=== PATIENT | male | born 1980 | race Caucasian/White ===

== ENCOUNTER 2018-07-19 09:12 | Inpatient (IN) | payer OTHER ==
[~2018-07-19] VITALS: Ht 182.9 cm; Wt 154.7 kg
[2018-07-19 09:13] VITALS: BP 153/106
[2018-07-19 09:35] LABS: URINE BLOOD TRACE (Negative); URINE CLARITY CLEAR; URINE COLOR YELLOW; URINE GLUCOSE-RANDOM* NEGATIVE (Negative); URINE KETONES 3+ (Negative); URINE LEUKOCYTES-REFLEX NEGATIVE (Negative); URINE NITRITE-REFLEX NEGATIVE (Negative); URINE PROTEIN (DIPSTICK) 2+ (Negative); URINE SPECIFIC GRAVITY >= 1.030 (1.005-1.035)
[2018-07-19 09:38] LABS: URINE BILIRUBIN NEGATIVE (Negative)
[2018-07-19 09:39] LABS: ICTOTEST (BILI CONFIRMATORY) Negative (Negative); URINE REDUCING SUBSTANCE NEGATIVE
[2018-07-19 09:46] LABS: MUCUS 4-6 Moderate strn/LPF (None Seen); SQUAMOUS None Seen /LPF (0-3); URINE RBC 0-2 Rare /HPF (0-2); URINE WBC-REFLEX 0-5 Rare /HPF (0-5)
[2018-07-19 09:47] LABS: CRYSTALS None Seen /LPF (None Seen); FINE GRANULAR CASTS 0-3 Few /LPF (None Seen)
[2018-07-19 10:35] LABS: HEMATOCRIT 38.5 % (42.0-52.0); HEMOGLOBIN 12.7 gm/dL (14.0-18.0); MCH 29.1 pg (26.0-34.0); MCHC 33.1 g/dL (28.0-37.0); MCV 87.8 fL (80.0-100.0); RBC 4.38 mil/uL (4.50-6.00); RDW 12.6 % (10.5-14.5); WBC 11.7 thou/uL (4.0-11.0)
[2018-07-19 10:45] LABS: CALCIUM 9.2 mg/dL (8.5-10.1); POTASSIUM 3.3 mmol/L (3.5-5.1)
[2018-07-19 10:50] LABS: TOTAL BILIRUBIN 0.7 mg/dL (<0.1-1.0); TOTAL PROTEIN 7.5 g/dL (6.4-8.2)
[2018-07-19 16:07] VITALS: BP 125/83
--- NOTE | 2018-07-19 16:24 | NUR ---
[address] PER DR. REESE VIA TELEPHONE ORDER, READ BACK, CONFIRMED AT THIS TIME. MAR UPDATED.
[2018-07-19 16:33] VITALS: BP 108/62
[2018-07-19 16:40] VITALS: BP 146/97
--- NOTE | 2018-07-19 18:40 | NUR ---
Patient arrived from ER this evening. Alert and oriented x4. Afebrile on arrival to floor. Complaints of increase in pain to RLQ, rating a 20/10. Per ER report, patient also had increase in nausea and vomited before coming up to the floor. Called Dr. Heart to update of change in pain and nausea. Also febrile in ER with temp of 103. To draw labs in the morning and monitor patient overnight. Pain management changed to Dilaudid 0.5 mg q 2 hours. Patient given first dose and relates a decrease in pain; also feels nausea has settled as well. Patient has IR consult to place possible drain for ruptured appendix. Spoke with IR staff, who requests Dr. Tabares call post tronic machine operator physician, Dr. Miller. Paged Dr. Tabares. Updated on patient condition, orders from Dr. Heart and to call on-call IR physician. Provided with number. Dr. Miller did call this RN and to keep patient NPO, hold Lovenox overnight and to draw INR in morning. May place possible drain tomorrow morning. Orders placed in computer. Admission history, assessment and education completed. IVF infusing per orders. Bilateral SCDs in place. Patient encouraged to call for assistance before ambulating, due to pain medications. Verbalizes understanding. Will continue to monitor.
[2018-07-19 19:49] VITALS: BP 145/94
[2018-07-19 23:50] VITALS: BP 143/92
[2018-07-20] VITALS (15 sets, daily range): BP systolic 112–153; BP diastolic 52–102
--- NOTE | 2018-07-20 04:05 | NUR ---
Medicated for pain with some relief. He stated he slept fair during the night. Mom at bedside. No nausea or vomiting. Afebrile. Voided per urinal in bathroom. Will continue to monitor.
[2018-07-20 05:24] LABS: HEMATOCRIT 39.1 % (42.0-52.0); HEMOGLOBIN 13.1 gm/dL (14.0-18.0); MCH 29.3 pg (26.0-34.0); MCHC 33.4 g/dL (28.0-37.0); MCV 87.7 fL (80.0-100.0); RBC 4.46 mil/uL (4.50-6.00); RDW 12.8 % (10.5-14.5); WBC 10.6 thou/uL (4.0-11.0)
[2018-07-20 05:40] LABS: CREATININE 1.2 mg/dL (0.7-1.3); POTASSIUM 3.7 mmol/L (3.5-5.1)
[2018-07-20 05:52] LABS: INR 1.1; PROTIME 11.8 Seconds (9.3-11.4)
--- NOTE | 2018-07-20 18:13 | NUR ---
ASSUMED PATIENT CARE AT 0700/ A/O X4. IR INSERTED TWO ARSH TO RLQ. PATIENT FREQUENTLY NEEDS PAIN MEDS AND NAUSEA, UP STB. SLOWLY TOWARDS POC GOALS.
[2018-07-21 04:00] VITALS: BP 132/91
--- NOTE | 2018-07-21 06:46 | NUR ---
O2 sat in RA in the mid 80's at beginning of shift. O2 at 3L/NC and has maintained O2 sat in the mid 90's. No respiratory distress. SAP DATA ANALYST and RT notified. Hydrocodone given for pain at HS then hydromorphone given this am since he threw up when he woke up. Pain is well controlled and pt. stated tolearble. Max temp. this shift 99.8 then afebrile the rest of the night. Zofran given with good relief. Ambulated to bathroom to use urinal and voided dark yellow urine. Drain #1 had 30 ml of purulent dge. and none on drain #2. Pt. stated he slept better last night. Will continue to monitor.
[2018-07-21 07:37] VITALS: BP 130/84
[2018-07-21 15:39] VITALS: BP 128/90
--- NOTE | 2018-07-21 18:10 | NUR ---
Assumed care of Pt at 0700. PT alert and oreinted x4, pain well controlled with current med regimen. ambulating in hallway w/ sba - reports lightheadedness and feeling nauseated during ambulation . absess drain patent - see documentation for output. pt calls appropriately. tolerating clear liquids w/o difficulty. many visitors at bedside throughout the day. vitals stable. pt progressing toward poc goals.
[2018-07-21 20:00] VITALS: BP 134/87
[2018-07-22 03:20] VITALS: BP 115/82
--- NOTE | 2018-07-22 04:03 | NUR ---
PATIENT IS ALERT AND ORIENTED. PATIENT IS SBA. PATIENT IS ON 2L NC(NOT BASE LINE). PATIENTS PAIN IS CONTROLLED WITH PAIN MEDICATION. PATIENT DID NOT FEEL UP TO AMBULATING THIS SHIFT. PATIENT IS CONTIENT. VOIDS PER URINAL. DRIANS FLUSHED PER ORDER. PATIENT LBM WAS THE 27TH. PATIENT IS RESTING COFMORTABLY IN BED. WCM. PATIENT IS TOLERATING CLEAR LIQUIDS WELL.
[2018-07-22 07:35] VITALS: BP 132/86
--- NOTE | 2018-07-22 16:01 | NUR ---
Assumed care of Pt at 0700. Pt AOX4 in no acute distress. abscess drains in place w/ clear brown output. ambulating multiple times in hallway throughout day w/ stand by assist. advancing diet but pt reports small appetite. eating mostly jello. picc line ordered for outpatient abx use per ID rec. vitals stable. patient well controlled with current med regimen. last bm 07/21. afebrile. reporting no new symptoms. mom at bedside throughout day. voicing no concerns at this time. good progress toward poc goals.
--- NOTE | 2018-07-22 16:12 | NUR ---
INITIAL ASSESSMENT: Received consult to arrange home IV abx: Zosyn 4.5 gm IV q 8 hrs for one week. Pt will have PICC line placed. LYNN reviewed chart and spoke with nursing and attending physician. Pt was admitted from home with acute appendicitis. Pt had two drains placed and will need IV abx. LYNN met with pt and family at bedside. Introduced role of SW. Pt is alert/orientated x 4. Pt reports he lives at home with his . Prior to admission, pt was independent with ADLs. No use of DME. Pt is employed. Pt does not have a PCP. SW discussed need for home IV abx. Pt is aware and agreeable with discharge plan. LYNN discussed options for HH and Home Infusion companies. No preference voiced. LYNN faxed referral to [facility]. LYNN notified [facility] clinical account liaison, who states they do not accept pt's insurance. LYNN faxed referral to [facility] and notified liaisonDeysi. Awaiting call back from Deysi at this time. LYNN notified intake at [facility]. Awaiting input from [facility] if they accept pt's insurance. Pt to have PICC line placed this afternoon. Anticipated discharge home will be on Thursday, 07/24. LYNN is following to assist as needed with discharge planning.
[2018-07-22 16:23] VITALS: BP 122/84
--- NOTE | 2018-07-22 16:45 | NUR ---
VASCULAR ACCESS CONSULTED FOR PICC PLACEMENT, PT'S LABS,MEDS,HISTORY,ORDER AND CONSENT VERIFIED. DISCUSSED BENEFITS AND RISK WITH PT,VERBALIZED UNDERSTANDING. PT WAS PREPPED AND DRAPED FOR MAX BARRIER PRECAUTIONS. ANDREW BRACHIAL WAS WIDELY PATENT WITH USG,1% LIDOCAINE GIVEN SQ. 4FR SL POWER PICC TRIMMED TO 48CM INSERTED TO 3CM EXTERNAL. PICC SECURED , STAT CXR OBTAINED
--- NOTE | 2018-07-22 16:56 | NUR ---
CXR CONFIRMED PLACEMENT, PICC RELEASED FOR IMMEDIATE USE PER PROTOCOL TO EDGAR DODGE
[2018-07-22 19:15] VITALS: BP 136/88
[2018-07-23 04:50] VITALS: BP 119/81
[2018-07-23 05:51] LABS: HEMATOCRIT 34.4 % (42.0-52.0); HEMOGLOBIN 11.2 gm/dL (14.0-18.0); MCH 29.2 pg (26.0-34.0); MCHC 32.7 g/dL (28.0-37.0); MCV 89.4 fL (80.0-100.0); RBC 3.85 mil/uL (4.50-6.00); WBC 8.2 thou/uL (4.0-11.0)
[2018-07-23 06:04] LABS: CALCIUM 8.5 mg/dL (8.5-10.1); CREATININE 0.9 mg/dL (0.7-1.3); POTASSIUM 3.3 mmol/L (3.5-5.1)
--- NOTE | 2018-07-23 07:51 | NUR ---
PATIENT IS ALERT AND ORIENTED. PATIENT IS SBA. PATIENTS PAIN IS CONTROLLED WITH MEDICATION. NO FEVER. DRAIN #1 WONT FLUSH. PATIENTS PICC LINE WAS PULLED BY PATIENT CHEST XRAY WAS DONE TO DETERMINE PLACEMENT. PATIENT IS ON 2LNC. PATIENT LBM WAS THE 27TH. PATIENT IS RESTING COMFORTABLEY.
[2018-07-23 08:00] VITALS: BP 117/85
--- NOTE | 2018-07-23 10:39 | HC ---
[facility] [place] [address] CONSULTATION Name: SILVIANO SMITH Room #: 355-P [facility] IN .R.#: [id number] Admission: 07/19/18 ������������������ Attend Phys: Ariel Tabares MD Discharge: ������������������ Date of : 82 Report #: [id number] THIS REPORT FOR: //name// CC: PATRICIA physician/PCP Ariel Tabares DATE OF SERVICE: 07/22/2018 INFECTIOUS DISEASE CONSULTATION: REASON FOR CONSULTATION: I was asked to evaluate concerning intraabdominal abscess. HISTORY OF PRESENT ILLNESS: The patient is a 38-year-old who presented with 3-day history of increased right lower abdominal pain associated with low grade fever. Evaluation through the Emergency Room noted a phlegmonous change in the right lower quadrant and absence of a visualized appendix. Subsequently, formed an abscess x 2, which were percutaneously drained on 07/20/2018. Gram stain showed mixed artemio. Cultures are pending. The patient had temperature up to 102.9 degrees on that date and subsequently has been afebrile, although he continues to have some sweats. He has been on 2 liters of oxygen per nasal cannula. His pain is under reasonable control. He has had a moderate amount of feculent, purulent drainage from his drainage tubes. No prior history of GI disease. He has otherwise been healthy. He is obese. He is a smoker of cigarettes. He has a moderate amount of alcohol intake. REVIEW OF SYSTEMS: A 10-point review of systems was negative other than what was described above. ALLERGIES: None. MEDICATIONS: As noted on his MAR including Zosyn. PAST MEDICAL HISTORY: Negative other than wisdom teeth out and some orthopedic surgery on his hand. FAMILY HISTORY: Noncontributory. SOCIAL HISTORY: As noted above with no other issues identified. He does work in a computer desk job and is . PHYSICAL EXAMINATION: VITAL SIGNS: Afebrile and hemodynamically stable. Alert and cooperative, in no acute distress. Appeared his stated age, on 2 liters of oxygen per nasal cannula. HEENT: Without scleral icterus. Mouth without mucositis. [facility] [address] [place] [address] CONSULTATION Name: SILVIANO SMITH Room #: 355-P ADM IN M.R.#: [id number] Admission: 07/19/18 ������������������ Attend Phys: Ariel Tabares MD Discharge: ������������������ Date of : 82 Report #: [id number] NECK: Supple, with no thyromegaly or mass. LUNGS: Decreased breath sounds in the bases bilaterally. Few crackles heard on the right. No consolidation or rub. HEART: Regular, without murmur, gallop or rub. ABDOMEN: Obese with mild distention. He had positive bowel sounds. Two drains in the right lower quadrant in place. Surrounding erythema involving the right lower quadrant and right flank region. 1+ edema. No appreciable masses. Had mild guarding in the right lower quadrant region. External genitalia unremarkable without lesion or mass. RECTAL: Not performed. EXTREMITIES: Peripheral IV in the right upper extremity without erythema or drainage. No clubbing, cyanosis or edema. Cranial nerves intact. Strength in upper and lower extremities was normal. Sensation upper and lower extremities normal. LABORATORY STUDIES: Sodium 137, potassium 3.7, bicarbonate 28, creatinine 1.2. Liver function test normal. Hemoglobin 13.1, platelet count 216,000, WBC 10.6. Urinalysis, moderate bacteria. Blood cultures and urine culture negative. Abdominal fluid culture pending with Gram stain showing mixed artemio. IMPRESSION: 1. A 38-year-old with perforated appendix and right lower quadrant abscess cavities. Initial size 4.5 cm. Fever is down. GI function is beginning to improve. 2. Obesity. 3. Tobacco use. RECOMMENDATIONS: We will continue IV antibiotic therapy outpatient infusion. Follow up laboratory studies including procalcitonin. Repeat imaging to ensure resolution of the fluid collections. Then, anticipate definitive surgical intervention in 2-3 months. Home health arrangements will be made. This was discussed with the patient and his mother at the bedside. ��������������������������������������������� <ELECTRONICALLY SIGNED> ���������������������������������������� By: Michele Montanez MD ��������������������������������������������� 07/23/18 [id number] Michele Montanez MD /nt
[2018-07-23 15:12] VITALS: BP 117/85
--- NOTE | 2018-07-23 15:19 | NUR ---
SW reviewed chart and spoke with nursing and attending physician. Pt is progressing towards goals for discharge. Discharge home with HH and Home IV abx is anticipated for tomorrow. [facility] liaison is able to accept pt and start care tomorrow. [facility] liaison met with pt and at bedside to provide education and discuss copay. Pt and are agreeable with home IV abx and copay. Pt had PICC line placed yesterday. SW updated nursing and attending physician. SW met with pt and at bedside to discuss discharge plan. SW explained that home infusion and HH will coordinate with them start of home IV abx. SW updated intake at [facility] and [facility] liaison. Contact info for [facility] and [facility] placed in pt's discharge summary. Final discharge orders and summary will need to be faxed to [facility] and [facility]. Pt's family will provide transportation home. SW is available to assist as needed with discharge planning. [facility]-- [facility]-- Call when orders are faxed.
[2018-07-23 16:39] VITALS: BP 128/88
--- NOTE | 2018-07-23 16:55 | NUR ---
ASSUMED PATIENT CARE AT 0700. A/O X4. UP AMBULATED IN HALLWAY. RLQ TWO DRAIN FLASHED. PAIN MEDS GIVEN NEEDS. VSS, AFEBRILE. PROGRESSING TOWARDS POC GOALS.
[2018-07-23 19:04] VITALS: BP 114/80
[2018-07-24 03:15] VITALS: BP 119/88
--- NOTE | 2018-07-24 06:42 | NUR ---
PT MAKING PROGRESS TOWARDS GOALS. X1 DOSE OF LORTAB GIVEN OVERNIGHT FOR PAIN. PT UP AMBULATING THE PURVIS WITH HIS SPOUSE LAST NIGHT. EARLY AM PT DENIED NEED FOR ANY PAIN MEDICATION AT THAT TIME. NO REPORTED NAUSEA OVERNIGHT.
[2018-07-24 07:08] VITALS: BP 117/78
[2018-07-24] MEDS ORDERED: HYDROCODONE-AP1 EAC6 PO (15:21)
[2018-07-24] MEDS ORDERED: ZOSYN 3.373.375 GM/1 IV (15:21)
[2018-07-24 15:51] VITALS: BP 117/85
--- NOTE | 2018-07-24 16:12 | NUR ---
PATIENT HAS BEEN DISCHARGED AT THIS TIME. HE IS ALERT ORIENTED X4. WALKED WITH OFF UNIT. DRESSING TO [place] DRAIN REINFORECED AND DRAIN ALSO FLUSHED. DISCHARGE PAPERWORK FAXED TO [facility] AND A FOLLOW UP CALL ENSUED AND THEY WILL DELIVER TO PATIENT LATER TODAY. [facility] WAS ALSO CALLED AND THEY WILL SEE PATIENT TONIGHT. INSTRUCTED THEM THE NEXT ABT IS AT 10PM.
== END 2018-07-24 16:15 | disposition home health service (06) | DRG 871 ==
LOC: ER 09:12 → EROBS 11:22 → 3W 11:22
PROVIDERS: Radiology Vascular & Interventional Radiology; Student in an Organized Health Care Education/Training Program; ADMIT Hospitalist
PROC: 0D9J30Z Drainage of Appendix with Drainage Device, Percutaneous Approach (ICD-10-PCS; principal; 2018-07-20)
PROC: 02HV33Z Insertion of Infusion Device into Superior Vena Cava, Percutaneous Approach (ICD-10-PCS; 2018-07-22)
DX: A41.9 Sepsis, unspecified organism (principal); K35.33 Acute appendicitis with perforation, localized peritonitis, and gangrene, with abscess; Z68.42 Body mass index [BMI] 45.0-49.9, adult; J98.11 Atelectasis; F17.210 Nicotine dependence, cigarettes, uncomplicated; E66.01 Morbid (severe) obesity due to excess calories; R09.02 Hypoxemia
CPT/HCPCS: 10080; 27000

== ENCOUNTER → 2018-08-05 | Outpatient (CLI) | payer OTHER ==
[~2018-08-05] MED LIST: HYDROCODONE-AP1 EAC6 PO; ZOSYN 3.373.375 GM/1 IV
== END ==
LOC: CAT 07:43
DX: K35.33 Acute appendicitis with perforation, localized peritonitis, and gangrene, with abscess (principal); E06.9 Thyroiditis, unspecified; J98.11 Atelectasis

== ENCOUNTER → 2018-08-23 | Outpatient (CLI) | payer OTHER | LOC: CAT 08:34 | DX: K65.1 Peritoneal abscess (principal) ==